=== PATIENT | female | born 1980 | race Hispanic/Latino ===

== ENCOUNTER 2024-12-14 20:49 | Emergency (ER) | payer SELFPAY ==
[~2024-12-14] VITALS: Ht 152.4 cm; Wt 58.5 kg
[2024-12-14 20:54] VITALS: TEMP 98.1
[2024-12-14 21:14] LABS: RAPID GROUP A STREP negative (NEGATIVE)
[2024-12-14 21:28] LABS: SARS-CoV-2, RNA, NAAT NEGATIVE SARS CoV-2 (NEGATIVE)
[2024-12-14 21:32] LABS: INFLUENZA TYPE A Negative For Type A (NEGATIVE); INFLUENZA TYPE B Negative For Type B (NEGATIVE)
--- NOTE | 2024-12-14 21:57 | ERN ---
ED Note History of Present Illness Stated Complaint: C/O THROAT PROBLEM Chief Complaint: Sore Throat Time Seen by MD: 20:56 Time Seen by Midlevel: 20:57 Dictation: 44-year-old female presents to the emergency department for evaluation due to reported having chills, body aches and a sore throat that began yesterday. She states that she feels febrile but is not able to verify a fever. The patient states that she believes that she came in contact with some family members with similar symptoms. Upon initial evaluation, the patient presents in no acute respiratory distress. 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 Past Medical History Past Medical History: No Pertinent History Surgical History: None PSYCH History: no pertinent psych hx RN Note Reviewed/Agreed w/PFSH: Yes Review of System Dictation Constitutional: Chills ENT: Sore throat Initial Vital Sign VS Vital Signs Date Time Temp Pulse Resp B/P (MAP) Pulse Ox O2 Delivery O2 Flow Rate FiO2 12/14/24 20:54 98.1 93 20 100/77 100 Room Air* 0 21 Physical Exam Dictation General: awake, alert, NAD Head/Face: Normocephalic, atraumatic Eyes: PERRL, EOMI ENT: Oral mucosa moist, erythematous pharynx Neck: Trachea midline, supple Cardiovascular: RRR, no edema Respiratory: Symmetrical, non-labored Abdomen: Soft, non-tender, non-distended, no guarding. Skin: Warm, dry, good turgor, no rash MS/Extremity: Pulses equal, no cyanosis, neurovascular intact, FROM Neuro: COAx4, GCS 15, steady gait, Psych: Normal behavior, mood, and affect normal Results (Laboratory/Radiology) Laboratory/Radiology Laboratory Tests Test 12/14/24 20:55 Influenza Type A Antigen Negative For Type A Influenza Type B Antigen Negative For Type B SARS-CoV-2, RNA, NAAT NEGATIVE SARS CoV-2 Group A Streptococcus Rapid negative (NEGATIVE) Labs Reviewed?: Yes ED Course ED Course Orders Procedure Category Date Status Time Covid Rna Naat LAB 12/14/24 Complete 20:52 Influenza Type A & B, LAB 12/14/24 Complete Rapid 20:52 Rapid (Group A Strep) LAB 12/14/24 Complete 20:52 Dexamethasone 4mg/Ml PHA 12/14/24 In Process 1ml Vial (Dexametha 22:00 Ketorolac PHA 12/14/24 In Process Tromethamine 30mg/Ml 22:00 Current Medications Medications (Trade) Dose Ordered Sig/Naga Route PRN Reason Start Time Stop Time Status Last Admin Dose Admin Dexamethasone Sodium Phosphate (dexaMETHasone 4MG/ML 1ML VIAL) 6 mg ONCE ONCE IM 12/14/24 22:00 12/14/24 22:01 12/14/24 21:45 Ketorolac Tromethamine (toRADol) 30 mg ONCE ONCE IM 12/14/24 22:00 12/14/24 22:01 12/14/24 21:47 Vital Signs Date Time Temp Pulse Resp B/P (MAP) Pulse Ox O2 Delivery O2 Flow Rate FiO2 12/14/24 20:54 98.1 93 20 100/77 100 Room Air 12/14/24 20:54 98.1 93 20 100/77 100 Room Air* 0 21 Medical Decision Making MDM MDM: Differential diagnosis: Viral illness, influenza, COVID. Rationale: Tests considered and ordered secondary to shared decision making include: Previous outside records reviewed: Old ER visits. Risk of complication and/or morbidity or mortality of patient management: None Medications-Per medication reconciliation Need for hospitalization: Patient does not meet criteria for hospitalization. Need for emergency major/minor surgery: No There are no social concerns with this patient. Prescription drug management Prescriptions will include symptomatic care Patient's prior external medical records from other ER visits were reviewed by me as indicated. Prior testing and results from previous visits were reviewed. Prior tests were taken into account with medical decision making and resource utilization, independent historian/historians were used to obtain complete medical history. I independently interpreted the test that were performed, results were reviewed by me and considered findings on radiology if ordered. Medical management and examination interpretation discussions were had by me with other qualified healthcare professionals as indicated for the patient's care. DX & DISP Disposition: Discharge Departure Impression: Primary Impression: Viral illness Condition: Stable Referrals: SELF,REFERRAL (PCP) Time of Disposition: 21:56 CRISTOBAL BOWEN Dec 14, 2024 21:57
[2024-12-14 22:17] VITALS: BP 104/71; PULSE 88; RESP 20; O2SAT 100
== END 2024-12-14 22:21 | disposition home or self-care (01) ==
LOC: EDH 20:49
DX: B34.9 Viral infection, unspecified (principal); Z20.822 Contact with and (suspected) exposure to COVID-19
CPT/HCPCS: 99284; 87635; 87880; 87804 ×2; 96372 ×2; J1100; J1885